=== PATIENT | male | born 1935 | race Caucasian/White ===

== ENCOUNTER → 2017-12-03 11:00 | Outpatient (CLI) | payer MEDICARE, SELFPAY ==
[2017-12-03 13:53] LABS: PSA,Total - Annual Screen 3.22 ng/mL (0.00-4.00)
== END ==
PROVIDERS: Family Provider Internal Medicine; PCP Internal Medicine; Visit Provider Urology
DX: Z12.5 Encounter for screening for malignant neoplasm of prostate (principal)
CPT/HCPCS: 36415; 84153; G0103

== ENCOUNTER 2019-09-10 11:09 | Emergency (ER) | payer MEDICARE, SELFPAY ==
[2019-09-10 11:10] VITALS: BP 162/71; PULSE 63; RESP 18; TEMP 36.6; O2SAT 96; BMI 29.7
--- NOTE | 2019-09-10 11:36 | ED.VIS.LOWEX ---
History of Present Illness Chief Complaint: Lower Extremity Injury Informant: Patient, Family Occurred: Today Context: Sudden Onset - while getting up from seat in a restaurant, suddenly felt snap and acute pain in left knee Timing: Continuous Quality of Pain: Aching Location: inside left knee Current Severity: Gone - while resting Maximum Severity: Severe Worsened by: weight-bearing Relieved by: rest Associated Symptoms: Negative for: Parasthesia, Weakness, Loss of Funtion Narrative: Patient states his left knee has been bothering him for 6 or 7 months, has been sore. He did some activities around the house yesterday and it was bothering him more but more of a gradual worsening of the same soreness. Today, he went to get up from a sitting position, felt a snap and acute worsening of pain along with some swelling in his knee. He is on no anticoagulants. He states this feels very similar to how he felt 18 or 20 years ago when he had arthroscopic knee surgery for a meniscus tear. He already has an appointment with an orthopedic in [place] for this knee in 1.5 weeks from now. - Past Medical History (1) Hypertension Status: Chronic (2) Osteoarthritis Status: Chronic Past Medical History - Allergies and Home Meds Allergies/Adverse Reactions: Allergies Penicillins Allergy (Verified 09/10/19 11:12) Rash Primary Care Physician: Grant Carmona MD [Primary Care Provider] - Surgical History: - - Left knee arthroscopic Lives: Alone Smoking Status: Former smoker Review of Systems General: Denies: Chills, Fever, Sweats Musculoskeletal: Reports: Swelling - Focal, left knee, Extremity Pain Skin: Denies: Rash, Wounds Neurological: Denies: Weakness, Numbness Physical Exam Vital Signs/Narrative: Vital Signs Temp Pulse Resp BP Pulse Ox 09/10/19 11:10 97.9 F 63 18 162/71 H 96 Inital Vital Signs reviewed: Yes - Extremity Exam Left Knee: - - All ligaments stable without pain or laxity on stressing. Full range of motion. Mild diffuse swelling, unable to determine if true effusion or not. No erythema or excessive warmth. Skin exam normal.. Negative for: Deformity, Hematoma, Limited ROM - Full range of motion, extensor mechanism intact. General: Well nourished, Well developed Head: Normocephalic, Atraumatic Skin: Normal color, No rash, No Trauma Neurological: Alert, Oriented x3, Cranial nerves II-XII grossly intact, Normal Strength, Normal Sensation Psychological: Normal affect, Normal Mood Diagnostic/Tx/Re-eval Clinical Impression(s) from Imaging Studies Knee X-Ray 09/10/19 11:38 IMPRESSION: Degenerative arthrosis. Electronically Signed: Cristino Velasquez, at 12:12 EST , Service support , - Medical Decision Making Patient has a positive Jagdish. He does not have a locked knee. I suspect a meniscal injury as a worse case scenario here. His x-rays show degenerative arthrosis and are essentially negative for anything acute. He already has follow-up established with orthopedics which I advised that he continue with. He took meloxicam earlier and I advised that he take those 1 daily as able with regards to his stomach and kidneys. He has a walker, a cane, and some other type of assistance device at home. I advised that he use these in addition to an Juan J wrap we gave him here, rest and ice as needed for swelling and pain at rest, and follow-up with orthopedics. I would limit his weightbearing. He is comfortable with that plan. ED Disposition - Plan for ED Patient: Disposition: Home or Assisted Living Diagnosis: Internal derangement of left knee, Osteoarthritis Instructions: Treating Meniscus Problems Referrals: Grant Carmona MD [Primary Care Provider] - tyrone ken [Other] (as scheduled)
--- NOTE | 2019-09-10 11:38 | RAD_ITS ---
STUDY: X-RAY - LEFT KNEE REASON FOR EXAM: Male, 83 years old. Pain. TECHNIQUE: 4 view(s) of the knee. COMPARISON: None. FINDINGS: Normal visualized distal femur. Normal visualized proximal tibia and fibula. Normal proximal tibiofibular articulation. There is mild degenerative arthrosis of the medial femorotibial compartment. Normal lateral femorotibial compartment. There is moderate degenerative arthrosis of the patellofemoral articulation. The soft tissue structures are unremarkable. RAD/Knee 4 or More Views IMPRESSION: Degenerative arthrosis. Electronically Signed: Cristino Velasquez, at 12:12 EST , Service support ,
[2019-09-10 12:36] VITALS: BP 156/111; PULSE 61; RESP 17
== END 2019-09-10 13:12 | disposition home or self-care (01) ==
PROVIDERS: Emergency Provider Emergency Medicine; Family Provider Internal Medicine; PCP Internal Medicine
DX: M23.92 Unspecified internal derangement of left knee (principal); M17.12 Unilateral primary osteoarthritis, left knee; I10 Essential (primary) hypertension; Z87.891 Personal history of nicotine dependence
CPT/HCPCS: 73564; 99282

== ENCOUNTER 2020-07-08 12:35 | Emergency (ER) | payer MEDICARE, SELFPAY ==
[2020-07-08 12:36] VITALS: BP 144/81; PULSE 52; RESP 16; TEMP 36.6; O2SAT 97; BMI 29.7
--- NOTE | 2020-07-08 12:54 | ED.DCSUM_ITS ---
History of Present Illness Informant: Patient Onset: Days Narrative: 84-year-old male with past medical history of hypertension, osteoarthritis, appendectomy, kidney stones presents with complaints of right-sided flank/abdominal pain. Pain started 5 days ago and resolved. Pain started again last night with nausea and dry heaves. It is intermittent. Seems worse with urination and he has dysuria. No hematuria. States feels like his last kidney stones except less painful. When he had kidney stones in the past it required surgery. Denies fevers, chills, vomiting, diarrhea, constipation or blood in stool. <Neetu Pineda - Last Filed: 07/08/20 14:14> <Elly Dietz - Last Filed: 07/08/20 21:48> Chief Complaint: Flank Pain Past Medical History Past Medical History: - - hypertension, osteoarthritis, appendectomy, kidney stones Surgical History: - - Left knee arthroscopic Smoking Status: Former smoker <Neetu Pineda - Last Filed: 07/08/20 14:14> <Elly Dietz - Last Filed: 07/08/20 21:48> - Allergies and Home Meds Allergies/Adverse Reactions: Allergies Penicillins Allergy (Verified 07/08/20 12:35) Rash Primary Care Physician: Eloy Adorno MD [STAFF PHYSICIAN] - Grant Carmona MD [Primary Care Provider] - Review of Systems General: Denies: Chills, Fever, Sweats Eyes: Denies: Visual changes - bilaterally, Diplopia ENT: Denies: Rhinorrhea, Sore throat Cardiovascular: Denies: Chest pain, Palpitations Respiratory: Denies: Dyspnea, Cough, Dyspnea on exertion Gastrointestinal: Reports: Abdominal pain, Nausea. Denies: Vomiting, Diarrhea, Constipation, Melena, Hematochezia Genitourinary: Reports: Dysuria. Denies: Hematuria, Frequency Musculoskeletal: Reports: Back pain Skin: Denies: Rash Neurological: Denies: Headache, Weakness <Neetu Pineda - Last Filed: 07/08/20 14:14> Physical Exam Vital Signs/Narrative: Vital Signs Temp Pulse Resp BP Pulse Ox 07/08/20 12:36 97.8 F 52 L 16 144/81 H 97 General: Well nourished, Well developed, No Acute Distress Head: Normocephalic, Atraumatic Eyes: Perrl, EOMI ENT: Moist mucous membranes, No rhinorrhea Neck: Supple, Nontender Cardiovascular: Regular rate, Regular rhythm, No murmurs Respiratory: No distress, CTA bilaterally, Chest nontender Abdomen: Soft, Nondistended, Normal bowel sounds, Tender, - - tenderness in RLQ, soft with no guarding or rebound. Negative for: Guarding Back: Nontender, Normal Inspection Extremities: Nontender, No edema Skin: Normal color, No rash Neurological: Alert, Oriented x3, Cranial nerves II-XII grossly intact Psychological: Normal affect, Normal Mood <Neetu Pineda - Last Filed: 07/08/20 14:14> Diagnostic/Tx/Re-eval Clinical Impression(s) from Imaging Studies Abdomen/Pelvis CT 07/08/20 13:25 IMPRESSION: Mild right hydronephrosis and right hydroureter due to a recently passed calculus which is at the base of the bladder on the right side. There is also evidence of a 8.1 mm x 8 mm calculus at base of the bladder. Calculus at the base of the bladder. Electronically Signed: Cristino Velasquez, at 13:46 EDT , Service support , Laboratory Data 07/08/20 07/08/20 07/08/20 13:05 13:05 13:10 WBC 15.6 H RBC 4.35 L Hgb 15.1 Hct 40.1 MCV 92.2 MCH 34.7 H MCHC 37.7 H RDW Std Deviation 47.3 H RDW Coeff of Paige 14.0 Plt Count 288 MPV 10.1 Immature Gran % (Auto) 0.300 Neut % (Auto) 46.5 L Lymph % (Auto) 43.6 H Mcdonough % (Auto) 8.1 Eos % (Auto) 1.3 Baso % (Auto) 0.2 Absolute Neuts (auto) 7.3 Absolute Lymphs (auto) 6.80 H Nucleated RBC % 0 Sodium 137 Potassium 3.4 L Chloride 102 Carbon Dioxide 29.0 Anion Gap 6 BUN 22 H Creatinine 0.88 Estim Creat Clear Calc 60.51 Est GFR (MDRD) Af Amer 107 Est GFR (MDRD) Non-Af 88 BUN/Creatinine Ratio 25.1 H Glucose 94 Calcium 8.9 Urine Color Straw Urine Clarity Clear Urine pH 6.0 Ur Specific Helper 1.015 Urine Protein 15 H Urine Glucose (UA) Normal Urine Ketones Negative Urine Occult Blood 25 H Urine Nitrite Negative Urine Bilirubin Negative Urine Urobilinogen Normal Ur Leukocyte Esterase 25 H Urine RBC 0-5 SEEN Urine WBC 0-5 SEEN Ur Squamous Epith Cells 0 SEEN Ur Transition Epith Cell 0-5 SEEN Urine Bacteria 1+ Urine Mucus 0 SEEN - Medical Decision Making Patient presented with right-sided flank/abdominal pain similar to his previous kidney stones. He appears well nontoxic. Vital signs show bradycardia 52, otherwise normal. His baseline heart rate appears to be in the low 60s. He had no CVA tenderness on exam with minimal right lower quadrant tenderness. No peritoneal signs. Labs show leukocytosis of 15, otherwise unremarkable. Urine has infection. CT showed mild right hydronephrosis and right hydroureter due to a recently passed 8 mm calculus which is at the base of the bladder. He is feeling improved after morphine and Zofran. He was given urology follow-up as the size of the stone may not pass but he is feeling comfortable enough to go home. Given a short prescription of Percocet and Zofran and discharged home in stable condition. <Neetu Pineda - Last Filed: 07/08/20 14:14> - Medical Decision Making I have personally performed a [id number] assessment and have reviewed the PA note. 84-year-old male presenting with right flank pain. He has a remote history of kidney stone. He states this started several days ago, improved, and then worsened. On exam, abdomen is soft and nontender, no CVA tenderness. Urinalysis unremarkable. CT shows recently passed calculus into the bladder. On reevaluation he is resting comfortably. He is advised to follow-up with urology. Advised return to ED for worsening complaints. <Elly Dietz - Last Filed: 07/08/20 21:48> ED Disposition <Neetu Pineda - Last Filed: 07/08/20 14:14> <Elly Dietz - Last Filed: 07/08/20 21:48> - Plan for ED Patient: Disposition: Home or Assisted Living Diagnosis: Hydronephrosis concurrent with and due to calculi of kidney and ureter Instructions: ED Renal Stone w Colic Prescriptions: Oxycodone HCl/Acetaminophen [Percocet 5/325] 1 tab PO Q6H PRN PRN 3 Days #12 tab PRN Reason: Pain Transmission Status: Re[facility] by [id number] Ondansetron [Zofran Odt] 4 mg PO Q8H PRN PRN #10 tab PRN Reason: Nausea Transmission Status: Received by [id number] Referrals: Grant Carmona MD [Primary Care Provider] - Eloy Adorno MD [STAFF PHYSICIAN] -
[2020-07-08] MEDS: 0.9% Normal Saline 1,000 ML 250 ML IV (13:12)
[2020-07-08] MEDS: Ondansetron 4 MG/2 ML Vial IV (13:12)
[2020-07-08] MEDS: Morphine 2 MG/ML Syringe IV ×2 (13:12→14:10)
[2020-07-08 13:23] LABS: Mucous, Urine 0 SEEN /hpf (<or=2+); Squamous Epithelial Cells - UA 0 SEEN /hpf (0-5)
[2020-07-08 13:24] LABS: Color, Urine Straw (Yellow); Glucose, Dipstick Normal (Normal); Ketone-Dipstick Negative (Negative); Leukocyte Esterase-Dipstick 25 /ul (Negative); Nitrite-Dipstick Negative (Negative); Occult Blood-Urine 25 /ul (Negative); Protein-Dipstick 15 mg/dl (Negative); Specific Gravity, Urine 1.015 (1.002-1.030); Urine Bilirubin Dipstick Negative (Negative); Urine Clarity Clear (Clear); Urine Urobilinogen Normal (Normal)
--- NOTE | 2020-07-08 13:25 | CT_ITS ---
STUDY: CT ABDOMEN AND PELVIS WITHOUT CONTRAST REASON FOR EXAM: Male, 84 years old. RIGHT FLANK PAIN X 5 DAYS. DYSURIA WITH NAUSEA AND VOMITING. RADIATION DOSAGE (If Supplied By Facility): CTDIvol = ( 16.86 ) mGy, DLP = ( 926.66 ) mGycm TECHNIQUE: Transaxial images were obtained from the dome of the diaphragm to the symphysis pubis without oral contrast, and without intravenous contrast. Sagittal and coronal images were reconstructed. Individualized dose optimization techniques were used for this CT. COMPARISON: None. FINDINGS: The visualized lung bases are unremarkable. The visualized portions of the heart are within normal limits. Calcified granulomas in the left lobe liver. One centimeters cyst in the anterior aspect of the right liver superiorly. There are surgical clips in the gallbladder fossa consistent with a prior cholecystectomy. Normal spleen. Normal pancreas. Normal bilateral adrenal glands. Mild degree of right hydronephrosis and right perinephric stranding. Mild degree of right hydroureter. There is a 3.2 mm calculus at the right base of the bladder most likely secondary to a recently passed stone. Normal left kidney. Normal visualized stomach. Normal small intestine. There are multiple colonic diverticula consistent with diverticulosis. The appendix is visualized and appears normal. There is diffuse atherosclerotic calcification of the abdominal aorta and its major visceral branches, without a demonstrated aneurysm. Normal inferior vena cava. Normal retroperitoneum. There is a 8.1 mm x 8 mm calculus at the base of the bladder most likely representing an old stone within the urinary bladder. The urinary bladder is empty with diffuse bladder wall thickening. There is enlargement of the prostate gland. The prostate measures 4.6 cm x 4.9 cm. Calcifications are seen within it. Evidence of prior lower anterior abdominal wall hernia repair with mesh. Prior laminectomy and fusion at the L3-L4 and L4-L5 levels. CT/Abdomen/Pelvis without Cont IMPRESSION: Mild right hydronephrosis and right hydroureter due to a recently passed calculus which is at the base of the bladder on the right side. There is also evidence of a 8.1 mm x 8 mm contraceptive base of the bladder. Calculus at the base of the bladder. Electronically Signed: Cristino Velasquez, at 13:46 EDT , Service support ,
[2020-07-08 13:26] LABS: Absolute Neutrophil Count 7.3 X10^3/uL (2.0-7.7); Basophil# 0.03 X10^3/uL; Basophil% 0.2 % (0-1); Eosinophil# 0.21 X10^3/uL; Eosinophils% 1.3 % (0-5); Hematocrit 40.1 % (40-54); Hemoglobin 15.1 g/dL (13.0-16.5); Lymphocyte % 43.6 % (19-41); Mean Corp Hgb Conc 37.7 g/dL (32-36); Mean Corpuscular Hgb 34.7 pg (27.0-32.0); Mean Corpuscular Volume 92.2 fL (80-94); Mean Platelet Vol. 10.1 fl (6.2-12.0); Monocyte# 1.27 X10^3/uL; Monocyte% 8.1 % (0-10); NRBC Flagged by Analyzer 0 % (0-5); Neutrophil # 7.25 X10^3/uL (2.7-7.7); Neutrophil % 46.5 % (47-70); POSITIVE COUNT YES; POSITIVE DIFFERENTIAL YES; POSITIVE MORPHOLOGY YES; Platelet Count 288 K/mm3 (150-450); RBC Distribution Width SD 47.3 fl (35.1-43.9); Red Blood Count 4.35 M/mm3 (4.6-6.2); White Blood Count 15.6 K/mm3 (4.4-11.0)
[2020-07-08 13:30] LABS: Bacteria 1+ /hpf (None Seen); Red Blood Cells-Urine 0-5 SEEN /hpf (0-5); Transitional Epithelial - Ur 0-5 SEEN /hpf (0-5); White Blood Cells 0-5 SEEN /hpf (0-5)
[2020-07-08 13:40] LABS: Anion Gap 6 (5-15); BUN 22 mg/dL (7-18); BUN/Creat Ratio 25.1 RATIO (10-20); Calcium,Total 8.9 mg/dL (8.5-10.1); Chloride 102 mmol/L (98-107); Creatinine, Serum 0.88 mg/dL (0.70-1.30); EST Glomerular Filtration Rate 88 mL/min (>60); Est Glom Filt Rate - Afr Amer 107 mL/min (>60); Estimated Creatinine Clearance 60.51 ml/min; Glucose 94 mg/dL (74-106); Potassium 3.4 mmol/L (3.5-5.1); Sodium Level 137 mmol/L (136-145)
[2020-07-08 14:00] LABS: Differential Indicated SCAN CRITERIA MET
[2020-07-08 14:05] LABS: Platelet Estimate ADEQUATE (ADEQ); Red Cell Morphology NORM C+C NORMAL (NORM C&C)
== END 2020-07-08 14:54 | disposition home or self-care (01) ==
PROVIDERS: Emergency Provider Physician Assistant; PCP Internal Medicine
DX: N13.2 Hydronephrosis with renal and ureteral calculous obstruction (principal); I10 Essential (primary) hypertension; Z87.442 Personal history of urinary calculi
CPT/HCPCS: 74176; 80048; 81001; 85025; 96374; 96375; 96376; 99281; 99283; J7030; A4216; J2405

== ENCOUNTER 2020-08-03 11:28 | Day surgery (SDC) | payer MEDICARE, SELFPAY ==
--- NOTE | 2020-07-29 09:02 | EKG12_ITS ---
Test Reason : PRE OP Blood Pressure : / mmHG Vent. Rate : 051 BPM Atrial Rate : 051 BPM P-R Int : 188 ms QRS Dur : 106 ms QT Int : 474 ms P-R-T Axes : 008 -29 052 degrees QTc Int : 436 ms Sinus bradycardia Otherwise normal ECG Confirmed by PRADEEP STATON, LEONORA ([id number]), editor at large PETRONA GIBSON ([id number]) on 08/02/2020 11:10:34 AM Referred By: lEoy Adorno Confirmed By:LEONORA FERNÁNDEZ MD
[2020-07-29 09:33] LABS: Hematocrit 41.4 % (40-54); Hemoglobin 15.1 g/dL (13.0-16.5); Mean Corp Hgb Conc 36.5 g/dL (32-36); Mean Corpuscular Hgb 34.6 pg (27.0-32.0); Mean Corpuscular Volume 94.7 fL (80-94); Mean Platelet Vol. 9.8 fl (6.2-12.0); Platelet Count 312 K/mm3 (150-450); RBC Distribution Width CV 14.4 % (11.6-14.6); RBC Distribution Width SD 48.7 fl (35.1-43.9); Red Blood Count 4.37 M/mm3 (4.6-6.2); White Blood Count 14.9 K/mm3 (4.4-11.0)
[2020-08-03] VITALS (9 sets, daily range): BP systolic 123–157; BP diastolic 66–93; PULSE 56–77; RESP 14–18; TEMP 36.6–37.1; O2SAT 93–96; BMI 29.8
--- NOTE | 2020-08-03 08:03 | PCM.HP.STD ---
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 Status: Acute (2) Bladder stone Status: Acute (3) Right ureteral calculus Status: Acute History of Present Illness Date of Admission: 08/03/20 Chief Complaint: Large and obstructive prostate bladder stone and right ureteral calculi The patient is a 84 year old male who has a very large obstructive prostate a large bladder stone also has a stone in the distal right ureter today plan to taken the surgery for laser lithotripsy and cystolitholapaxy of the bladder stone also organ to ureteroscopy on the right side extraction of stone possible stent and also can proceed with transurethral resection of the prostate. Past Medical History Past Medical History (Chronic Problems): Chronic Problems Hypertension (Chronic) Osteoarthritis (Chronic) Allergies Penicillins Allergy (Verified 07/26/20 08:24) Rash Home Medications: Ambulatory Orders Medication Instructions Recorded Amlodipine [Norvasc] 10 mg PO DAILY 10/12/17 Brimonidine Tartrate 0.2% 1 drop RIGHT EYE BID 10/12/17 [Brimonidine 0.2% 5Ml Bottle] Calcium Carb/Vitamin D 1 tab PO BIDCM 10/12/17 [Caltrate-600 With Vit D Tab] Cholecalciferol (VIT D3) [Vitamin 1,000 unit PO DAILY 10/12/17 D] Dorzolamide HCl/Timolol Maleat 10 ml OP BID 10/12/17 [Dorzolamide-Timolol Eye Drops] Glucosamine Sulfate Dipot Chlr 1,000 mg PO DAILY 10/12/17 [Glucosamine Sulfate] Ibuprofen 200 mg PO Q6H PRN PRN 10/12/17 Ketoconazole 120 ml TP DAILY 10/12/17 Magnesium Oxide 400 mg PO DAILY 10/12/17 Surgical History: - - Left knee arthroscopic Smoking Status: Former smoker Tobacco Use: Non-smoker Review of Systems Constitutional: Denies: Chills, Fever, Weight Change HEENT: Denies: Head Aches, Sinus Congestion, Sinus Drainage Cardiovascular: Denies: Chest Pain, Palpitations Respiratory: Denies: Cough, Shortness of breath at rest, Sputum production Gastrointestinal: Denies: Abdominal Pain, Nausea, Vomiting Genitourinary: Denies: Dysuria Musculoskeletal: Denies: Joint Pain, Joint Tenderness Skin: Denies: Rash, Wounds Neurological: Denies: Numbness, Tingling, Focal weakness Psychiatric: Denies: Anxiety, Depression, Homicidal Ideations, Suicidal Ideations Hematologic/ Lymphatic: Denies: Easy Bruising, Easy Bleeding VTE Information - Inpt Only VTE Present on Admission: No - Physical Exam Vitals/I&O's: Body Mass Index (BMI) 29.7 General: Alert, Oriented x3, Cooperative HEENT: Atraumatic, PERRLA, EOMI, Normocephalic Neck: Supple, No JVD, Negative Carotid Bruits Lungs: Clear to auscultation, Normal air movement Cardiovascular: Regular rate, No murmurs Abdomen: Bowel Sounds Present, Soft, Non Tender Extremities: No edema, Capillary Refill Less than 3 Seconds Skin: No rashes, No breakdown Musculoskeletal: No Tenderness to Palpation of Joints or Extremities Neurological: Cranial nerves II-XII grossly intact Psych/Mental Status: Normal Affect, Appropriate Microbiology Past 72 Hours 08/02/20 08:45 Interface Orders SARS-CoV-2 Antigen (Rapid) - Final Assessment/Plan All Active Problems BPH with obstruction/lower urinary tract symptoms (Acute) Bladder stone (Acute) Right ureteral calculus (Acute) Plan to proceed with surgery with transurethral section of the prostate, laser of a large bladder stone, also laser of a ureteral calculi and stent placement on the right side.
--- NOTE | 2020-08-03 08:10 | PCM.DC.URO ---
Discharge Diet: Light diet - advance as tolerated, Soft diet Discharge Activity: May Shower Call your doctor if your incision/area has: Continuous Slow Oozing, Sudden Increased Bleeding, Increased Pain/ Swelling, Increased Redness, Foul Smelling Discharge, Swelling at the incision site Suture Line Care: Avoid Pulling/Pushing, Avoid Pinching/Bending Instructions: Transurethral Resection of the Prostate (TURP): Home Recovery Allergies/Adverse Reactions: Allergies Penicillins Allergy (Verified 07/26/20 08:24) Rash Medications to take at Discharge Amlodipine [Norvasc] 10 mg PO DAILY 10/12/17 Brimonidine Tartrate 0.2% [Brimonidine 0.2% 5Ml Bottle] 1 drop RIGHT EYE BID 10/12/17 Calcium Carb/Vitamin D [Caltrate-600 With Vit D Tab] 1 tab PO BIDCM 10/12/17 Cholecalciferol (VIT D3) [Vitamin D] 1,000 unit PO DAILY 10/12/17 Dorzolamide HCl/Timolol Maleat [Dorzolamide-Timolol Eye Drops] 10 ml OP BID 10/12/17 Glucosamine Sulfate Dipot Chlr [Glucosamine Sulfate] 1,000 mg PO DAILY 10/12/17 Ibuprofen 200 mg PO Q6H PRN PRN 10/12/17 Ketoconazole 120 ml TP DAILY 10/12/17 Magnesium Oxide 400 mg PO DAILY 10/12/17 Ciprofloxacin [Cipro] 500 mg PO BID #14 tab 08/03/20 Ibuprofen 600 mg PO Q6H PRN PRN 7 Days #20 tab 08/03/20 The following prescriptions were given: Ciprofloxacin [Cipro] 500 mg PO BID #14 tab Transmission Status: [id number] Ibuprofen 600 mg PO Q6H PRN PRN 7 Days #20 tab PRN Reason: Pain 1-10 Or Fever Transmission Status: Pending [id number] Orders to be completed after discharge: 12 Lead EKG [[facility]] Time Frame: 07/29/20, Facility: [facility], Location: Cardiovascular Services Primary Care Physician: Grant Carmona MD [Primary Care Provider] - Test Results: Test results from this visit will be discussed in further detail at your follow-up appointment, if applicable. Please Follow Up With: Eloy Adorno MD When: in 2 weeks, please call to make an appointment.
--- NOTE | 2020-08-03 13:35 | PROS_PTH ---
PATIENT: PEPE SCHUMACHER [place] [facility] [id number] AGE/SX: 84/M ROOM: RE08/03/[address]: Dr. Eloy Adorno MD : [id number] BED: DIS: 08/04/2020 SPEC #: [id number] RECD: 08/04/20 07:54 STATUS: DENICE MAK #: [id number] LIZETT: 08/03/20 13:[address]: Eloy Adorno DEPT: SURGICAL PATHOLOGY RECD BY: Sandy Loza ENTERED: 08/04/20 09:36 SP TYPE: TURP OTHR DR: Dr. Grant Carmona MD Tissues: Prostate, NOS Procedures: Surgery Specimen Level IV HEADER OPERATION: Cysto, TUR prostate, [employer] PRE-OP DIAGNOSIS: BPH with obstruction; lower urinary tract symptoms, bladder stone, right ureteral calculus TISSUE SUBMITTED: Prostate pieces with bladder stone MICROSCOPIC DIAGNOSIS Prostate pieces with bladder stone, TUR prostate: Benign prostatic hyperplasia, glandular and stromal type. Focal chronic inflammation. Fragments of stone, clinically bladder stone (gross only). LELA:darvin 08/05/20 MICROSCOPIC DESCRIPTION Slides are reviewed. GROSS DESCRIPTION Received in fixative is one container labeled with the patient's name and designated prostate pieces and bladder stone. The specimen consists of multiple irregular fragments of pink-conway, rubbery, soft tissue that in aggregate weigh 16.7 gm and measure in aggregate 6 x 5.5 x 2 cm. Multiple minute fragments of brown stones are noted mixed with soft tissue pieces. Information Systems Operator tissue is submitted in ten cassettes. / LELA:darvin 08/04/20 TC:5 CPT: 77096
[2020-08-03] MEDS: Lactated Ringers 1,000 ML 100 ML IV (14:00)
[2020-08-03] MEDS: Cefazolin 2 GM in 0.9% Normal Saline 100 ML IV (14:26)
--- NOTE | 2020-08-03 15:43 | PCM.OPRPT ---
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 He was taken back to the operating room at the smooth induction of general anesthesia he was placed in dorsolithotomy position went into the bladder with a 24 Estonian rigid cystourethroscope with a laser bridge I encountered the 3 cm stone in the back of the bladder I used the laser and laser the stone little tiny pieces evacuated all the pieces of the bladder. I then switched over to the resectoscope and resected the floor of the prostate the right lobe of the prostate left lobe of the prostate I then switched over to the button and vaporized the base of the rest of the prostate to had nice wide open channel with no obstruction clear channel whether all the way from the sphincter to the bladder put a catheter in the bladder on continuous irrigation the urine was crystal clear with no bleeding and the patient's anesthetic was versed taken back to PACU in good condition the specimen was prostate tissue and stones. Type of Anesthesia:: General Drains: 22fr 3 way - Admit VTE Documentation VTE Present on Admission: No VTE Mechan Device Prophylaxis: SCD's
[2020-08-03] MEDS: 0.9% Normal Saline 1,000 ML 125 ML IV (17:38)
[2020-08-03] MEDS: Acetaminophen 325 MG Tablet PO (17:43)
[2020-08-03] MEDS: Ciprofloxacin 400 MG/200 ML BAG 200 MG IV (21:06)
[2020-08-03] MEDS: Docusate Sodium 100 MG Capsule PO (21:07)
[2020-08-04] MEDS: 0.9% Normal Saline 1,000 ML 125 ML IV (02:06)
[2020-08-04 03:02] VITALS: BP 145/66; PULSE 60; RESP 18; TEMP 36.8; O2SAT 95
[2020-08-04 06:00] LABS: Hematocrit 36.7 % (40-54); Hemoglobin 13.6 g/dL (13.0-16.5); Mean Corp Hgb Conc 37.1 g/dL (32-36); Mean Corpuscular Hgb 34.7 pg (27.0-32.0); Mean Corpuscular Volume 93.6 fL (80-94); Platelet Count 238 K/mm3 (150-450); RBC Distribution Width CV 14.6 % (11.6-14.6); RBC Distribution Width SD 48.8 fl (35.1-43.9); Red Blood Count 3.92 M/mm3 (4.6-6.2); White Blood Count 13.9 K/mm3 (4.4-11.0)
[2020-08-04 06:38] LABS: Anion Gap 6 (5-15); BUN 15 mg/dL (7-18); BUN/Creat Ratio 19.1 RATIO (10-20); Calcium,Total 8.2 mg/dL (8.5-10.1); Chloride 106 mmol/L (98-107); Creatinine, Serum 0.78 mg/dL (0.70-1.30); EST Glomerular Filtration Rate 101 mL/min (>60); Est Glom Filt Rate - Afr Amer 122 mL/min (>60); Estimated Creatinine Clearance 53.25 ml/min; Glucose 164 mg/dL (74-106); Potassium 3.8 mmol/L (3.5-5.1); Sodium Level 138 mmol/L (136-145)
[2020-08-04 09:15] VITALS: BP 149/69; PULSE 65; RESP 18; TEMP 36.9; O2SAT 95
[2020-08-04] MEDS: Ciprofloxacin 400 MG/200 ML BAG 200 MG IV (10:02)
[2020-08-04] MEDS: Pantoprazole Sodium 40 MG Tablet PO (10:04)
[2020-08-04 14:55] VITALS: BP 150/76; PULSE 64; RESP 16; TEMP 36.9; O2SAT 97
== END 2020-08-04 17:20 | disposition home or self-care (01) ==
LOC: SDC 11:29 → AC 11:30 → MS3 16:23
PROVIDERS: Anesthesiology; PCP Internal Medicine; Referring Provider Urology; Visit Provider Urology
PROC: (CPT 52318; principal; 2020-08-03 13:25)
PROC: (CPT 52318; 2020-08-03 13:25)
DX: N40.1 Benign prostatic hyperplasia with lower urinary tract symptoms (principal); I10 Essential (primary) hypertension; M19.90 Unspecified osteoarthritis, unspecified site; N13.8 Other obstructive and reflux uropathy; N21.0 Calculus in bladder; Z88.0 Allergy status to penicillin; N20.1 Calculus of ureter
CPT/HCPCS: 00914; 52318; 52601; 36415; 80048; 85027; 87426; 88305; 93005; C9803; J7030; J7120; J0744; J2405

== ENCOUNTER → 2022-09-21 | Outpatient (CLI) | payer MEDICARE, SELFPAY ==
--- NOTE | 2022-09-21 09:54 | CDU_ITS ---
Reason For Study: Retinal ischemia Rt. Velocities/BP Lt. Velocities/BP Prox CCA 110.1/13.3 cm/sec. Prox CCA 88.8/11.4 cm/sec. Mid CCA 110.1/13.3 cm/sec. Mid CCA 80.2/12.6 cm/sec. Dist CCA 95.5/17 cm/sec. Dist CCA 72.8/10.2 cm/sec. Prox ICA 79/11.4 cm/sec. Prox ICA 60.5/10.2 cm/sec. Mid ICA 108.4/20 cm/sec. Mid ICA 60.5/12.6 cm/sec. Dist ICA 70.4/16.3 cm/sec. Dist ICA 51.9/11.4 cm/sec. Rt. ICA/CCA = 1.14. Lt. ICA/CCA = 0.75. Prox ECA 115.6/7.9 cm/sec. Prox ECA 99.8/7.7 cm/sec. Rt. Vert. 36.2/8.8 cm/sec. Lt. Vert. 43.3/9 cm/sec. Right Extracranial There is homogeneous, smooth atherosclerotic plaque noted in the right common carotid artery. There is heterogeneous, irregular atherosclerotic plaque noted in the right internal carotid artery. There is intimal thickening but no significant atherosclerotic plaque noted in the right external carotid artery. Antegrade flow is noted in the right vertebral artery. Left Extracranial There is homogeneous, smooth atherosclerotic plaque noted in the left common carotid artery. There is heterogeneous, irregular atherosclerotic plaque noted in the left internal carotid artery. The atherosclerotic plaque causes acoustic shadowing. There is intimal thickening but no significant atherosclerotic plaque noted in the left external carotid artery. Antegrade flow is noted in the left vertebral artery. Procedure Carotid Duplex 86011. This is a Carotid Duplex examination using B-mode, color flow and specral Doppler. Exam performed in department. VL/Carotid Duplex Ultrasound Interpretation Summary Irregular plaque at the proximal right internal carotid artery with less than 5 0% stenosis Less than 50% stenosis right external carotid artery Irregular calcific plaque with shadowing at the proximal left internal carotid artery with less than 50% stenosis Less than 50% stenosis left external carotid artery Patent antegrade vertebral arteries bilaterally Ordering Physician: Terry Osman Referring Physician: Grant Carmona M.D. Performed By: Darcie Manuel RVT
== END | disposition home or self-care (01) ==
PROVIDERS: PCP Internal Medicine; Referring Provider Ophthalmology; Visit Provider Ophthalmology
DX: I65.23 Occlusion and stenosis of bilateral carotid arteries (principal); H35.82 Retinal ischemia
CPT/HCPCS: 93880

== ENCOUNTER → 2022-11-29 | Outpatient (CLI) | payer MEDICARE, SELFPAY ==
[2022-11-29 17:13] LABS: PSA,Total - Annual Screen 2.36 ng/mL (0.00-4.00)
== END | disposition home or self-care (01) ==
LOC: LAB 13:46
PROVIDERS: PCP Internal Medicine; Visit Provider Urology
DX: Z12.5 Encounter for screening for malignant neoplasm of prostate (principal)
CPT/HCPCS: 36415; 84153; G0103